=== PATIENT | female | born 1985 | race Caucasian/White ===

== ENCOUNTER 2016-08-17 09:02 | Emergency (ER) | payer MEDICARE, OTHER ==
[2016-08-17 09:20] VITALS: BP 110/69
--- NOTE | 2016-08-17 09:53 | UC ---
Ear Complaint HPI - HPI Summary HPI Summary: she has had congestion and has been using q tip in left ear. - History of Current Complaint Chief Complaint: UCEar Stated Complaint: RIGHT EAR COMPLAINT Time Seen by Provider: 08/17/16 09:49 Hx Obtained From: Patient, Family/Awning Finisher Hx Last Menstrual Period: unknown, mirena ?: No Onset/Duration: Sudden Onset Severity Initially: Moderate Severity Currently: Severe Aggravating Factors: Nothing Alleviating Factors: Nothing Associated Signs/Symptoms: Positive: URI Symptoms. Negative: Discharge, Hearing Loss, Swelling @ Related History: Seasonal Allergies - Allergies/Home Medications Allergies/Adverse Reactions: Allergies Allergy/AdvReac Type Severity Reaction Status Date / Time Sumatriptan [From Imitrex] Allergy Severe Swelling Verified 08/17/16 09:20 PMH/Surg Hx/FS Hx/Imm Hx Previously Healthy: Yes - Surgical History Surgical History: Yes Surgery Procedure, Year, and Place: EAR TUBES A CHILD. left side thyroidectomy 01/30/14. 3 metal plates and 12 screws in neck 01/08/2015. - Family History Known Family History: Positive: None, Other - no related ear disease. - Social History Alcohol Use: Rare Substance Use Type: None Smoking Status (MU): Light Every Day Tobacco Smoker Type: Cigarettes Amount Used/How Often: 3 - 4 cigarettes per day. Length of Time of Smoking/Using Tobacco: 7 Years Have You Smoked in the Last Year: Yes - is currently on chantix Household Exposure Type: Cigarettes - Immunization History Most Recent Influenza Vaccination: no Review of Systems All Other Systems Reviewed And Are Negative: Yes Physical Exam Triage Information Reviewed: Yes Appearance: Well-Appearing, No Pain Distress, Well-Nourished Vital Signs: Initial Vital Signs Temp 99.4 F 08/17/16 09:15 Pulse 88 08/17/16 09:15 Resp 16 08/17/16 09:15 BP 110/69 08/17/16 09:15 Pulse Ox 99 08/17/16 09:15 Vital Signs Reviewed: Yes Eye Exam: Normal ENT Exam: Other - left tragus tender and speculum in ear is tender with mild canal pinkness ENT: Positive: TMs normal. Negative: Tonsillar swelling, Tonsillar exudate, Trismus Dental Exam: Normal Neck exam: Normal Respiratory Exam: Normal Cardiovascular Exam: Normal Abdominal Exam: Normal Musculoskeletal Exam: Normal Neurological Exam: Normal Psychological Exam: Normal Skin Exam: Normal Ear Complaint Course/Dx - Differential Dx/Diagnosis Provider Diagnoses: left otitis externa. Discharge - Discharge Plan Condition: Good Disposition: HOME Prescriptions: Ciproflox/Dexameth OTIC.SUSP* [Ciprodex OTIC.SUSP*] 2 drop .SEE ORDER BID #5 btl Patient Education Materials: Otitis Externa (ED) Referrals: Lise Pappas PA [Primary Care Provider] - If Needed
== END 2016-08-17 09:59 | disposition home or self-care (01) ==
LOC: UCCORT 09:02
DX: H60.92 Unspecified otitis externa, left ear (principal); F17.290 Nicotine dependence, other tobacco product, uncomplicated
CPT/HCPCS: 99212; G0463

== ENCOUNTER 2018-12-18 19:03 | Emergency (ER) | payer MEDICARE, OTHER ==
[2018-12-18 20:20] VITALS: BP 102/72
--- NOTE | 2018-12-18 20:44 | UC ---
Throat Pain/Nasal Donny HPI - HPI Summary HPI Summary: Pt with head cold, thought was getting better. x 2 days right sided facial pain and pressure, popping right ear. Pt has taken OTC med relief. No fever chills. no abreu, ision changes. improved in shower med reviewed, not not immunocompromised - History of Current Complaint Chief Complaint: UCGeneralIllness Stated Complaint: SINUS COMPLAINT Time Seen by Provider: 12/18/18 20:41 Hx Last Menstrual Period: 12/18/18 has mirena ?: No Onset/Duration: Gradual Onset Severity: Mild Pain Intensity: 3 - Allergies/Home Medications Allergies/Adverse Reactions: Allergies Allergy/AdvReac Type Severity Reaction Status Date / Time sumatriptan [From Imitrex] Allergy Severe respiratory Verified 12/18/18 20:20 swelling PMH/Surg Hx/FS Hx/Imm Hx Previously Healthy: Yes - Surgical History Surgical History: Yes Surgery Procedure, Year, and Place: EAR TUBES A CHILD. left side thyroidectomy 01/30/14. 3 metal plates and 12 screws in neck 01/08/2015. - Family History Known Family History: Positive: None, Other - no related ear disease., Non- Contributory - Social History Occupation: Employed Full-time Lives: With Family Alcohol Use: Rare Substance Use Type: None Smoking Status (MU): Light Every Day Tobacco Smoker Type: Cigarettes Amount Used/How Often: 1/2 ppd Length of Time of Smoking/Using Tobacco: 7 Years Have You Smoked in the Last Year: Yes - is currently on chantix Household Exposure Type: Cigarettes - Immunization History Most Recent Influenza Vaccination: no Review of Systems All Other Systems Reviewed And Are Negative: Yes Constitutional: Positive: Fatigue ENT: Positive: Ear Ache, Sinus Congestion, Sinus Pain/Tenderness Physical Exam - Summary Physical Exam Summary: Vital Signs Reviewed: Yes A+Ox3, no distress Eyes: Conjunctiva Clear, JAY. 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 Skin: Positive: no rash, no ecchymosis Vital Signs: Initial Vital Signs Temp 98.4 F 12/18/18 20:16 Pulse 90 12/18/18 20:16 Resp 16 12/18/18 20:16 BP 102/72 12/18/18 20:16 Pulse Ox 98 12/18/18 20:16 Throat Pain/Nasal Course/Dx - Course Course Of Treatment: progressive right sided sinus pressure, pain fluid right TM, right max discomfort - c/w rhinosinusitiis abx flonase decongetant secretion precautio return precaution Pt comfortable with plan - Differential Dx/Diagnosis Provider Diagnosis: Acute rhinosinusitis Discharge ED - Sign-Out/Discharge Documenting (check all that apply): Patient Departure All imaging exams completed and their final reports reviewed: No Studies - Discharge Plan Condition: Stable Disposition: HOME Prescriptions: Amoxicillin PO (*) [Amoxicillin 875 MG (*)] 875 mg PO BID #19 tab Fluticasone NASAL SPRAY 50MCG* [Flonase NASAL SPRAY 50MCG*] 2 spray BOTH NARES DAILY #1 btl Patient Education Materials: Rhinosinusitis (ED) Referrals: Lise Pappas PA [Primary Care Provider] - Additional Instructions: - Stay well hydrated. Drink plenty of non-alcoholic, non-caffinated beverages. - Alternate ibuprofen (Advil, Motrin) 600mg and Tylenol every 3 hours for pain or fever. Take with food. Do NOT take for more than 4-5 days. - These infections are spread by secretions - do NOT share eating or drinking utensils - clean items you share with other people such as cell phones, computer mouse, TV remote, computer tablets,etc. Once you have been antibiotics for 2 days, change your toothbrush and your pillowcase. - get plenty of restful sleep - humidify the air in the room where you sleep - boil water, run a hot steam shower, vaporizer, cups of water by heat register - okay to take over the counter decongestant and cough medication - use nasal spray as prescribed - contact your doctor or return with questions or concerns - Billing Disposition and Condition Condition: STABLE Disposition: Home
[2018-12-18] MEDS ORDERED: Amoxicillin/Clavulanate TAB* 875 MG PO ONE (20:50)
== END 2018-12-18 20:59 | disposition home or self-care (01) ==
LOC: UCCORT 19:03
DX: J01.90 Acute sinusitis, unspecified (principal); F17.210 Nicotine dependence, cigarettes, uncomplicated; Z88.8 Allergy status to other drugs, medicaments and biological substances
CPT/HCPCS: 99212; A9270-GY; G0463